=== PATIENT | female | born 1965 | race Caucasian/White ===

== ENCOUNTER → 2017-04-24 | Outpatient (CLI) | payer BC ==
--- NOTE | 2017-04-24 13:05 | US ---
EXAMINATION TYPE: US thyroid st tissue head/neck DATE OF EXAM: 04/24/2017 COMPARISON: CT neck September 11, 2016. Prior neck ultrasound January 15, 2013 CLINICAL HISTORY: E04.1 Thyroid Cyst. GLAND SIZE: Right Lobe: 4.5 x 0.6 x 2.1 cm Overall Parenchyma: heterogenous Left Lobe: 4.5 x 1.3 x 1.5 cm Overall Parenchyma: heterogeneous Isthmus Thickness: 0.1 cm NODULES RIGHT: # of nodules measured on right: 1 1. 0.8 X 0.7 x 0.6 cm isoechoic solid nodule at the lower pole with well-defined margins; interrupt ed peripheral calcification. This nodule is wider than tall and shows intranodular vascularity. no prior ultrasound here LEFT: # of nodules measured on left: 4 1. 0.8 X 0.7 x 0.6 cm hypoechoic solid nodule at the upper pole with well-defined margins. This no dule is taller than wide and shows intranodular vascularity. 2. 1.2 X 1.1 x 1.0 cm isoechoic solid nodule at the mid pole with well-defined margins. This nodule is as wide as it is tall and shows intranodular vascularity. 3. 1.1 X 0.9 x 0.9 cm isoechoic solid nodule at the upper pole with well-defined margins. This nod ule is taller than wide and shows intranodular vascularity. 4. 1.5 X 0.7 x 0.8 cm hypoechoic solid nodule at the lower pole with well-defined margins. This nod ule is wider than tall and shows intranodular vascularity. ISTHMUS: # of nodules measured in the isthmus: 2 1. 1.3 X 0.5 x 0.4 cm isoechoic mixed nodule at the right pole with well-defined margins. This nod ule is wider than tall and shows intranodular vascularity. 2. 0.7 X 0.5 x 0.6 cm isoechoic mixed nodule at the left pole with well-defined margins. This nodul e is wider than tall and shows no intranodular vascularity. Bilateral neck scanned, no evidence of lymphadenopathy. Thyroid gland is normal in size and heterogeneous in appearance with scattered nodules identified boom aterally. A few nodules are greater than 1 cm in size. More nodules in right thyroid lobe are seen on prior CT than identified on ultrasound or are placed in the isthmus. IMPRESSION: The findings are consistent with multinodular goiter as detailed above.
== END | disposition home or self-care (01) ==
LOC: RADUSWWP 12:04
PROVIDERS: ATTEND Family Medicine
DX: E04.2 Nontoxic multinodular goiter (principal)
CPT/HCPCS: 76536

== ENCOUNTER → 2017-08-07 | Outpatient (CLI) | payer BC ==
--- NOTE | 2017-08-07 12:35 | MM ---
Reason for exam: screening (asymptomatic). Last mammogram was performed 1 year and 4 months ago. History: Family history of breast cancer in maternal grandmother. Benign cyst aspiration of the right breast. Took hormonal contraceptives for 9 years 1 month beginning at age 36. Physical Findings: A clinical breast exam by your physician is recommended on an annual basis and results should be correlated with mammographic findings. MG Screening Mammo w CAD Bilateral CC and MLO view(s) were taken. Prior study comparison: April 14, 2016, bilateral MG screening mammo w CAD. January 16, 2015, bilateral MG screening mammo w CAD. The breast tissue is heterogeneously dense. This may lower the sensitivity of mammography. Asymmetric breast tissue in the left breast is stable. There is no discrete abnormality. ASSESSMENT: Negative, BI-RAD 1 RECOMMENDATION: Routine screening mammogram of both breasts in 1 year.
== END | disposition home or self-care (01) ==
LOC: RADMAMWWP 09:26
PROVIDERS: ATTEND Obstetrics & Gynecology
DX: Z12.31 Encounter for screening mammogram for malignant neoplasm of breast (principal)

== ENCOUNTER → 2017-11-29 | Outpatient (CLI) | payer BC ==
--- NOTE | 2017-11-29 17:21 | US ---
EXAMINATION TYPE: US thyroid st tissue head/neck DATE OF EXAM: 11/29/2017 COMPARISON: US 2017. Ultrasound 04/24/2017. CLINICAL HISTORY: E04.1 THYROID NODULE. Follow up thyroid nodules, history of multiple thyroid FNA's, patient on thyroid meds GLAND SIZE: Right Lobe: 4.3 x 1.1 x 1.5 cm Overall Parenchyma: homogenous Left Lobe: 4.6 x 1.4 x 1.5 cm Overall Parenchyma: homogeneous Isthmus Thickness: 0.2 cm NODULES RIGHT: # of nodules measured on right: 3 1. 0.8 X 0.6 x 0.6 cm hypoechoic calcified solid nodule at the lower pole with well-defined margins . This nodule is wider than tall and shows no intranodular vascularity. Prior size: 0.8 x 0.7 x 0.6 cm 2. 1.1 X 0.4 x 0.5 cm hypoechoic solid nodule at the mid pole with well-defined margins. This nodule is wider than tall and shows intranodular vascularity. Prior size: no previous 3. 0.6 X 0.3 x 0.5 cm hypoechoic mixed nodule at the lower pole with well-defined margins. This nodu le is wider than tall and shows no intranodular vascularity. Prior size: no previous LEFT: # of nodules measured on left: 3 1. 1.2 X 1.0 x 1.1 cm hypoechoic solid nodule at the mid pole with well-defined margins. This nodul e is wider than tall and shows intranodular vascularity. Prior size: 1.2 x 1.1 x 1.0 cm 2. 1.3 X 0.8 x 0.8 cm hypoechoic mixed nodule at the upper pole with well-defined margins. This nodu le is wider than tall and shows intranodular vascularity. Prior size: 1.1 x 0.9 x 0.9 cm 3. 1.1 X 0.7 x 0.8 cm hypoechoic mixed nodule at the lower pole with well-defined margins. This nodu le is wider than tall and shows intranodular vascularity. Prior size: 1.5 x 0.7 x 0.8 cm ISTHMUS: # of nodules measured in the isthmus: 3 1. 1.2 X 0.5 x 0.7 cm hypoechoic mixed nodule at the right isthmus with well-defined margins. This nodule is wider than tall and shows intranodular vascularity. Prior size: 1.3 x 0.5 x 0.8 cm 2. 0.7 X 0.3 x 0.6 cm hypoechoic solid nodule at the left isthmus with well-defined margins. This n odule is wider than tall and shows intranodular vascularity. Prior size: 0.7 x 0.5 x 0.6 cm 3. 1.2 X 0.9 x 1.4 cm hypoechoic mixed nodule at the right isthmus with well-defined margins. This nodule is wider than tall and shows intranodular vascularity. Prior size: no previous Bilateral neck scanned, no evidence of lymphadenopathy. IMPRESSION: 1. Subcentimeter an enlarged thyroid nodules present bilaterally including within the isthmus. 2. There is a new nodule measuring 1.2 x 0.9 x 1.4 cm within the right portion of the isthmus not pre sent previously. 3. No enlarging nodules from prior examination.
== END | disposition home or self-care (01) ==
LOC: RADUSWWP 10:22
PROVIDERS: ATTEND Otolaryngology
DX: E04.1 Nontoxic single thyroid nodule (principal)
CPT/HCPCS: 76536

== ENCOUNTER 2018-01-30 12:14 | Day surgery (SDC) | payer BC ==
[2018-01-30 12:27] VITALS: RESP 16; TEMP 97.7
[2018-01-30 13:46] VITALS: BP 134/66; PULSE 60
--- NOTE | 2018-01-30 13:59 | US ---
ULTRASOUND GUIDED FNA THYROID BIOPSY: CLINICAL HISTORY: Request for single bilateral thyroid nodule FNA FINDINGS: The procedure was explained to the patient. The risks, complications, benefits and alternatives were discussed and any questions were answered. Informed consent was obtained. Patient was placed supin e on the ultrasound table and prepped and draped in the usual sterile fashion. Utilizing a 25 gauge needle, five passes were made into the requested thyroid nodules. Patient was stable throughout the procedure. Pathology is pending. All elements of maximal barrier technique were utilized. IMPRESSION: 1. Successful ultrasound guided FNA thyroid biopsy.
== END 2018-01-30 13:53 | disposition home or self-care (01) ==
LOC: RADPROMAIN 12:14
PROVIDERS: ATTEND Otolaryngology
DX: E04.1 Nontoxic single thyroid nodule (principal)
CPT/HCPCS: 10022; 76942; 88173; 88305

== ENCOUNTER → 2019-04-15 | Outpatient (CLI) | payer OTHER ==
--- NOTE | 2019-04-15 14:32 | BD ---
EXAMINATION TYPE: Axial Bone Density DATE OF EXAM: 04/15/2019 COMPARISON: NONE CLINICAL HISTORY: Encounter for osteoporosis. Postmenopausal female. Height: 5 FT 6 1/4 IN Weight: 130 FRAX RISK QUESTIONS: RISK FACTORS HISTORY OF: Active: YES Postmenopausal woman: AGE 52 If Premenopausal, do you have irregular periods: Take estrogen and/or progesterone medications: JUST STARTED PREMPRO How long: ONE WEEK Lost more than 2 inches in height since high school: YES MEDICATIONS: Thyroid Medications: YES Which medication: LEVOTHYROXINE How Long: APPROX 10 YEARS Additional Medications: HRT, LEVOTHYROXINE, ELEVIL, ZOLOFT, Additional History: EXAM MEASUREMENTS: Bone mineral densitometry was performed using the [employer] System. Bone mineral density as measured about the Lumbar spine is: ----- L1-L4(G/cm2): 1.033 T Score Values are as follows: ----- L2: -1.2 ----- L3: -1.2 ----- L4: -1.7 ----- L1-L4: -1.2 BASELINE Bone mineral density about the R hip (g/cm2): 0.782 Bone mineral density about the L hip (g/cm2): 0.791 T Score values are as follows: -----R Neck: -1.8 -----L Neck: -1.8 -----R Total: -2.2 -----L Total: -2.1 BASELINE IMPRESSION: Osteopenia (T Score between -2.5 and -1). There is slightly increased risk of fracture and the patient may be considered for treatment. Re-Screen 2-5 years. NOTE: T-SCORE=SD OF THE YOUNG ADULT MEAN.
--- NOTE | 2019-04-16 13:52 | MM ---
Reason for exam: screening (asymptomatic). Last mammogram was performed 1 year and 8 months ago. History: Patient is postmenopausal. Family history of breast cancer in maternal grandmother. Benign cyst aspiration of the right breast. Took hormonal contraceptives for 9 years 1 month beginning at age 36. Physical Findings: A clinical breast exam by your physician is recommended on an annual basis and results should be correlated with mammographic findings. MG 3D Screening Mammo W/Cad Bilateral CC and MLO view(s) were taken. Prior study comparison: August 07, 2017, bilateral MG screening mammo w CAD. April 14, 2016, bilateral MG screening mammo w CAD. The breast tissue is heterogeneously dense. This may lower the sensitivity of mammography. There is a new obscured 5mm spiculated mass 7.5cm from nipple in the left upper outer quadrant and stable left superior asymmetry 4.7cm from nipple. No suspicious abnormality on the right breast. ASSESSMENT: Incomplete: need additional imaging evaluation, BI-RAD 0 RECOMMENDATION: Ultrasound of the left breast. (attention 7.5cm from the nipple, 1-2 o'clock) [facility] will attempt to contact patient to return for ultrasound.
== END | disposition home or self-care (01) ==
LOC: RADMAMWWP 10:13
PROVIDERS: ATTEND Obstetrics & Gynecology
DX: Z12.31 Encounter for screening mammogram for malignant neoplasm of breast (principal); M85.88 Other specified disorders of bone density and structure, other site
CPT/HCPCS: 77063; 77067; 77080

== ENCOUNTER → 2019-04-15 | Outpatient (CLI) | payer OTHER ==
--- NOTE | 2019-04-15 14:43 | US ---
EXAMINATION TYPE: US thyroid st tissue head/neck DATE OF EXAM: 04/15/2019 COMPARISON: 11/29/2017 CLINICAL HISTORY: GOITER E07.9. GLAND SIZE: Right Lobe: 3.1 x 1.6 x 1.5 cm Overall Parenchyma: heterogenous Left Lobe: 4.5 x 1.5 x 1.7 cm Overall Parenchyma: heterogeneous Isthmus Thickness: 0.3 cm NODULES RIGHT: # of nodules measured on right: 3 1. 0.6 X 0.3 x 0.5 cm hypoechoic mixed nodule at the lower pole with well-defined margins; . This nodule is wider than tall and shows intranodular vascularity. Prior size: 0.6 x 0.3 x 05 cm 2. 0.8 X 0.4 x 0.6 cm hypoechoic solid nodule at the lower pole with well-defined margins; . This n odule is wider than tall and shows . Prior size: 0.8 x 0.7 x 0.6 cm 3. 0.8 X 0.4 x 0.5 cm hypoechoic solid nodule at the mid pole with well-defined margins; . This nod ule is wider than tall and shows intranodular vascularity. Prior size: 1.1x0.4 x 0.5 x cm LEFT: # of nodules measured on left: 2 largest measured, third is subcentimeter 1. 1.3 X 1.0 x 1.4 cm hypoechoic mixed nodule at the upper pole with well-defined margins; . This nodule is wider than tall and shows intranodular vascularity. Prior size: 1.3 x 0.8 x 0.8 cm 2. 1.1 X 1.0 x 1.5 cm hypoechoic solid nodule at the mid pole with well-defined margins; . This nod ule is wider than tall and shows intranodular vascularity. Prior size: 1.2 x 1.0 x 1.1 cm ISTHMUS: # of nodules measured in the isthmus: 3 1. 1.2 X 0.8 x 0.9 cm hypoechoic mixed nodule at the rt isthmus with well-defined margins; . This nodule is wider than tall and shows intranodular vascularity. Prior size: 1.2 x 0.5 x 0.7 cm 2. 1.3 X 1.0 x 1.4 cm hypoechoic solid nodule at the lt isthmus with well-defined margins; . This n odule is wider than tall and shows intranodular vascularity. Prior size: 1.2 x 0.9 x 0.4 cm 3. 1.1 X 1.0 x 1.5 cm hypoechoic solid nodule at the lt isthmus with well-defined margins; . This n odule is wider than tall and shows intranodular vascularity. Prior size: 1.2 x 0.9 x 1.4 cm Bilateral neck scanned, no evidence of lymphadenopathy. IMPRESSION: Multinodular goiter with numerous subcentimeter thyroid nodules and similar size of the greater than 1 cm left thyroid nodules, largest measuring 1.5 cm. Minimal growth is seen of a nodule within the th yroid isthmus however this appears to have been recently biopsied in 2018. No new nodule is identifie d.
== END | disposition home or self-care (01) ==
LOC: RADUSWWP 10:24
PROVIDERS: ATTEND Family Medicine
DX: E04.2 Nontoxic multinodular goiter (principal)
CPT/HCPCS: 76536

== ENCOUNTER → 2019-04-23 | Outpatient (CLI) | payer OTHER ==
--- NOTE | 2019-04-23 11:17 | USB ---
Reason for exam: additional evaluation requested from abnormal screening. History: Patient is postmenopausal. Family history of breast cancer in maternal grandmother. Benign cyst aspiration of the right breast. Took hormonal contraceptives for 9 years 1 month beginning at age 36. Physical Findings: Nurse did not find any significant physical abnormalities on exam. US Breast Workup Limited LT Left limited breast ultrasound including focal area of concern, retroareolar and axilla demonstrates no cystic or solid lesion seen. These results were verbally communicated with the patient and result sheet given to the patient on 04/23/19. ASSESSMENT: Negative, BI-RAD 1 RECOMMENDATION: Return to routine screening mammogram schedule for both breasts.
== END | disposition home or self-care (01) ==
LOC: RADUSWWP 10:17
PROVIDERS: ATTEND Obstetrics & Gynecology
DX: R92.8 Other abnormal and inconclusive findings on diagnostic imaging of breast (principal)

== ENCOUNTER → 2020-07-07 | Outpatient (CLI) | payer MEDICAID ==
--- NOTE | 2020-07-08 07:30 | US ---
EXAMINATION TYPE: US thyroid st tissue head/neck DATE OF EXAM: 07/07/2020 COMPARISON: US 2019 CLINICAL HISTORY: E07.9 thyroid goiter. Thyroid goiter. Hx of nodules. Patient on levothyroxine. Hx o f thyroid biopsy. GLAND SIZE: Right Lobe: 4.3 x 1.6 x 1.2 cm Overall Parenchyma: heterogenous Left Lobe: 4.0 x 1.5 x 1.2 cm Overall Parenchyma: heterogeneous Isthmus Thickness: 0.24 cm NODULES RIGHT: # of nodules measured on right: 3 1. 0.8 X 0.5 x 0.4 cm hypoechoic solid nodule at the mid pole with well-defined margins. This nodu le is wider than tall and shows intranodular vascularity. Prior size: 0.8 x 0.76 x 0.4 cm 2. 1.1 X 0.9 x 0.5 cm mixed complex nodule at the mid pole with well-defined margins. This nodule i s wider than tall and shows intranodular vascularity. Prior size: 0.7 x 0.5 x 0.4 cm 3. 0.8 X 0.6 x 0.6 cm hypoechoic solid nodule at the lower pole with well-defined margins; interrupt ed peripheral calcification. This nodule is as wide as it is tall and shows intranodular vascularity . Prior size: Does not correlate. LEFT: # of nodules measured on left: 4 1. 1.3 X 0.9 x 0.7 cm heterogeneous nodule at the upper pole with well-defined margins; present wit h microcalcifications. This nodule is wider than tall and shows peripheral vascularity. Prior size: 1.3 x 1.4 x 1.0 cm 2. 1.3 X 1.1 x 1.0 cm heterogeneous nodule at the mid pole with well-defined margins; present with m icrocalcifications. This nodule is wider than tall and shows peripheral vascularity. Prior size: 1.1 x 1.5 x 1.0 cm. 3. 0.7 X 0.6 x 0.5 cm complex mixed nodule at the mid pole with well-defined margins; present with m icrocalcifications. This nodule is wider than tall and shows intranodular vascularity. Prior size: Does not correlate. 4. 1.1 X 0.8 x 0.5 cm heterogeneous nodule at the lower pole with poorly defined margins. This nodu le is wider than tall and shows intranodular vascularity. Prior size: Does not correlate. ISTHMUS: # of nodules measured in the isthmus: 3 1. 1.5 X 1.4 x 1.1 cm heterogeneous solid nodule at the upper pole with well-defined margins . Thi s nodule is wider than tall and shows intranodular vascularity. Nodule is slightly right. Prior size: 1.2 x 0.9 x 0.8 cm 2. 1.0 X 0.8 x 0.5 cm hypoechoic solid nodule at the lower pole with well-defined margins. This nod ule is wider than tall and shows intranodular vascularity. Nodule is slightly right. Prior size: Does not correlate 3. 1.1 X 0.7 x 0.5 cm hypoechoic solid nodule at the lower pole with well-defined margins. This nod ule is wider than tall and shows intranodular vascularity. Nodule is slightly left. Prior size: Does not correlate. Bilateral neck scanned, no evidence of lymphadenopathy. IMPRESSION: Essentially stable nonspecific thyroid nodularity and heterogeneity.
== END | disposition home or self-care (01) ==
LOC: RADUSWWP 16:42
PROVIDERS: ATTEND Family Medicine
DX: E04.1 Nontoxic single thyroid nodule (principal)
CPT/HCPCS: 76536

== ENCOUNTER → 2020-07-30 | Outpatient (CLI) | payer MEDICAID ==
--- NOTE | 2020-07-31 13:55 | MM ---
Reason for exam: screening (asymptomatic). Last mammogram was performed 1 year and 3 months ago. History: Patient is postmenopausal. Family history of breast cancer in maternal grandmother. Benign cyst aspiration of the right breast. Took hormonal contraceptives for 9 years 1 month beginning at age 36. Taking estrogen for 7 months. Physical Findings: A clinical breast exam by your physician is recommended on an annual basis and results should be correlated with mammographic findings. MG Screening Mammo w CAD Bilateral CC and MLO view(s) were taken. Prior study comparison: April 15, 2019, bilateral MG 3d screening mammo w/cad. August 07, 2017, bilateral MG screening mammo w CAD. The breast tissue is extremely dense which could obscure a lesion on mammography. No significant changes when compared with prior studies. ASSESSMENT: Benign, BI-RAD 2 RECOMMENDATION: Routine screening mammogram of both breasts in 1 year.
== END | disposition home or self-care (01) ==
LOC: RADMAMWWP 15:58
PROVIDERS: ATTEND Obstetrics & Gynecology
DX: Z12.31 Encounter for screening mammogram for malignant neoplasm of breast (principal)
CPT/HCPCS: 77067

== ENCOUNTER → 2021-08-11 | Outpatient (CLI) | payer MEDICAID ==
--- NOTE | 2021-08-12 14:10 | BD ---
EXAMINATION TYPE: Axial Bone Density DATE OF EXAM: 08/11/2021 COMPARISON: NONE CLINICAL HISTORY: Height: 5 FT 8 IN Weight: 130 FRAX RISK QUESTIONS: Alcohol (3 or more units per day): NO Family History (Parent hip fracture): NO Glucocorticoids (More than 3mos): NO (Ex: prednisone, prednisolone, methylprednisolone, dexamethasone, and hydrocortisone). History of Fracture in Adulthood: NO Secondary Osteoporosis: 1. Type 1 Diabetes: NO 2. Hyperthyroidism: NO 3. Menopause before 45: NO 4. Malnutrition: NO 5. Chronic liver disease: NO Rheumatoid Arthritis: NO Current Tobacco Use: NO RISK FACTORS HISTORY OF: Surgery to Spine/Hip(right/left)/Wrist (right/left): NO Family History of Osteoporosis: NO Active: YES Diet low in dairy products/other sources of calcium: NO Postmenopausal woman: AGE 52 Take estrogen and/or progesterone medications: YES How lon YEARS Lost more than 2 inches in height since high school: NO MEDICATIONS: Thyroid Medications: YES Which medication: LEVOTHYROXINE How Lon YEARS Additional Medications: ESTRADIAL , PROGESTERONE ,LEVOTHYROXINE, MIGRAINE MEDS, OLI TRY PTI LINE, Additional History: EXAM MEASUREMENTS: Bone mineral densitometry was performed using the [email or web address] System. Bone mineral density as measured about the Lumbar spine is: ----- L1-L4(G/cm2): 0.993 T Score Values are as follows: ----- L2: -1.4 ----- L3: -1.6 ----- L4: -2.1 ----- L1-L4: -1.6 Bone mineral density has: DECREASED -4.0 % since study of: 2018 Bone mineral density about the R hip (g/cm2): 0.735 Bone mineral density about the L hip (g/cm2): 0.767 T Score values are as follows: -----R Neck: -2.2 -----L Neck: -1.9 -----R Total: -2.4 -----L Total: -2.3 Bone mineral density has: DECREASED -3.8 % since study of: 2018 IMPRESSION: Osteopenia (T Score between -2.5 and -1). There is slightly increased risk of fracture and the patient may be considered for treatment. Re-Screen 2-5 years. NOTE: T-SCORE=SD OF THE YOUNG ADULT MEAN.
--- NOTE | 2021-08-13 11:16 | MM ---
Reason for exam: screening (asymptomatic). Last mammogram was performed 1 year ago. History: Patient is postmenopausal. Family history of breast cancer in maternal grandmother. Benign cyst aspiration of the right breast. Took hormonal contraceptives for 9 years 1 month beginning at age 36. Taking estrogen for 7 months. Physical Findings: A clinical breast exam by your physician is recommended on an annual basis and results should be correlated with mammographic findings. MG 3D Screening Mammo W/Cad Bilateral CC and MLO view(s) were taken. Prior study comparison: July 30, 2020, bilateral MG screening mammo w CAD. April 23, 2019, left breast US breast workup limited LT. April 15, 2019, bilateral MG 3d screening mammo w/cad. August 07, 2017, bilateral MG screening mammo w CAD. The breast tissue is heterogeneously dense. This may lower the sensitivity of mammography. No significant changes when compared with prior studies. ASSESSMENT: Benign, BI-RAD 2 RECOMMENDATION: Routine screening mammogram of both breasts in 1 year. Patient should continue monthly self breast exams. A negative report should not preclude additional follow up of suspicious palpable abnormalities.
== END | disposition home or self-care (01) ==
LOC: RADBDWWP 14:15
PROVIDERS: ATTEND Obstetrics & Gynecology
DX: Z12.31 Encounter for screening mammogram for malignant neoplasm of breast (principal); M85.89 Other specified disorders of bone density and structure, multiple sites; Z78.0 Asymptomatic menopausal state; Z80.3 Family history of malignant neoplasm of breast
CPT/HCPCS: 77063; 77067; 77080

== ENCOUNTER → 2022-02-14 | Outpatient (CLI) | payer MEDICAID ==
[2022-02-14 18:26] LABS: Basophils # (A) 0.04 X 10*3/uL (0.00-0.10); Basophils % (A) 0.7 %; Eosinophils # (A) 0.23 X 10*3/uL (0.04-0.35); Eosinophils % (A) 3.8 %; HCT 44.6 % (37.2-46.3); HGB 14.5 g/dL (12.0-15.0); Immature Grans, Automated 0.2 %; Lymphocytes # (A) 1.54 X 10*3/uL (0.90-5.00); Lymphocytes % (A) 25.5 %; MCH 29.7 pg (27.0-32.0); MCHC 32.5 g/dL (32.0-37.0); MCV 91.4 fL (80.0-97.0); Mean Platelet Volume 10.8 fL (9.5-12.2); Monocytes # (A) 0.28 X 10*3/uL (0.20-1.00); Monocytes % (A) 4.6 %; NRBC Per 100 WBC 0 /100 WBCS (0.0-0.0); Neutrophils # (A) 3.94 X 10*3/uL (1.80-7.70); Neutrophils % (A) 65.2 %; Platelet Count 249 X 10*3/uL (140-440); RBC 4.88 X 10*6/uL (4.10-5.20); RDW 11.7 % (11.5-14.5); WBC 6.04 X 10*3/uL (4.50-10.00)
[2022-02-14 18:49] LABS: ALT 22 U/L (8-44); AST 24 U/L (13-35); African American GFR (CKD) 91.5 (60.0-200.0); Albumin 4.9 g/dL (3.8-4.9); Albumin/Globulin Ratio 2.24 (1.60-3.17); Alkaline Phosphatase 75 U/L (41-126); BUN/Creat Ratio 19.66 Ratio (12.00-20.00); Blood Urea Nitrogen 16.3 mg/dL (9.0-27.0); Calcium 9.6 mg/dL (8.7-10.3); Carbon Dioxide 26.7 mmol/L (20.0-27.5); Chloride 104 mmol/L (96-109); Chol/HDL Ratio 2.87 Ratio; Globulin 2.2 g/dL (1.6-3.3); Glucose 97 mg/dL (70-110); LDL Cholesterol,Calculated 118.3 mg/dL (0.0-131.0); Non-African American GFR(CKD) 78.9 (60.0-200.0); Potassium 4.1 mmol/L (3.5-5.5); Sodium 143 mmol/L (135-145); Total Protein 7.1 g/dL (6.2-8.2); VLDL Calculation 19.78 mg/dL (5.00-40.00)
== END | disposition home or self-care (01) ==
LOC: LABWHC1 11:38
PROVIDERS: ATTEND Family Medicine
DX: F43.0 Acute stress reaction (principal); E04.1 Nontoxic single thyroid nodule
CPT/HCPCS: 36415; 80053; 80061; 84439; 84443; 85025

== ENCOUNTER → 2022-02-28 | Outpatient (CLI) | payer MEDICAID ==
--- NOTE | 2022-02-28 22:10 | US ---
EXAMINATION TYPE: US thyroid st tissue head/neck DATE OF EXAM: 02/28/2022 COMPARISON: US July 07, 2020 CLINICAL HISTORY: E07.9 THYROID GOITER. Followup multiple nodules. GLAND SIZE: Right Lobe: 3.8 x 1.3 x 1.2 cm Overall Parenchyma: heterogenous Left Lobe: 4.8 x 1.6 x 1.3 cm Overall Parenchyma: heterogeneous Isthmus Thickness: 0.2 cm NODULES RIGHT: # of nodules measured on right: 2 largest of multiple 1. 0.8 X 0.9 x 0.4 cm, mid mid, spongiform, hypoechoic nodule, which is wider than tall, with ill-d efined margins, without echogenic foci. Prior size: 0.8 x 0.5 x 0.4 cm 2. 0.8 X 0.6 x 0.5 cm, lower medial, solid, hypoechoic nodule, which is wider than tall, with irreg ular margins, with echogenic peripheral focus. Prior size: 0.8 x 0.6 x 0.6 cm LEFT: # of nodules measured on left: 3 LARGEST OF MULTIPLE 1. 1.3 X 0.8 x 0.6 cm, upper mid, mixed cystic and solid, hypoechoic nodule, which is wider than ta ll, with ill-defined margins, without echogenic foci. Prior size: 1.3 x 1.1 x 1.0 cm 2. 1.4 X 1.3 X 1.1 cm, mid pole, mixed cystic and solid, hypoechoic nodule, which is wider than ta ll, with irregular margins, with echogenic foci. Prior size: 1.3 x 1.1 x 1.0 cm 3. 1.0 X 0.8 x 0.5 cm, lower pole, mixed cystic and solid, hypoechoic nodule, which is wider than t all, with ill-defined margins, with echogenic foci. Prior size: 1.1 x 0.8 x 0.5 cm ISTHMUS: # of nodules measured in the isthmus: 2 1.Right isthmus: 2.7 x 1.7 x 1.0 cm solid , hypoechoic nodule, which is wider than tall, with lobula julia margins, without echogenic foci. Prior size: 1.5 x 1.4 x 1.1 cm 2. Left isthmus consolidation: 1.3 X 0.8 x 0.5 cm, upper isthmus, mixed cystic and solid, hypoecho ic nodule, which is wider than tall, with lobulated or irregular margins, without echogenic foci. Prior size: 1.1 x 0.7 x 0.5 cm Bilateral neck scanned: no evidence of lymphadenopathy. Heterogeneous somewhat small size thyroid with multiple small nodules redemonstrated. IMPRESSION: As above. No suspicious new or enlarging solid nodules noted. Right thyroid isthmus nodul e likely was larger in size on long axis on prior exam. Sampling of larger nodules noted in the past.
== END | disposition home or self-care (01) ==
LOC: RADUSWWP 16:51
PROVIDERS: ATTEND Family Medicine
DX: E04.2 Nontoxic multinodular goiter (principal)
CPT/HCPCS: 76536

== ENCOUNTER 2022-10-17 13:01 | Day surgery (SDC) | payer BC, MEDICAID ==
[~2022-10-17 13:01] MED LIST: LACTATED RINGERS 1,000 ML IV SCH
[2022-10-17 13:18] VITALS: TEMP 96.9
[2022-10-17] MEDS ORDERED: LIDOCAINE 2% INJ 20 MG/ML (2 ML VIAL) ONE (14:00)
[2022-10-17] MEDS ORDERED: PROPOFOL 10 MG/ML 20 ML VIAL IV ONE (14:00)
--- NOTE | 2022-10-17 14:06 | P.GSHP ---
History of Present Illness H&P Date: 10/17/22 Chief Complaint: Screening colonoscopy This is a 57-year-old female who presents today for screening colonoscopy. Patient denies a significant GI complaints. Past Medical History Past Medical History: Thyroid Disorder Additional Past Medical History / Comment(s): migraines History of Any Multi-Drug Resistant Organisms: None Reported Past Surgical History: Orthopedic Surgery Additional Past Surgical History / Comment(s): knee surgery with screws, mult thyroid biopsy Past Anesthesia/Blood Transfusion Reactions: No Reported Reaction Smoking Status: Never smoker - Past Family History Father Family Medical History: Cancer Additional Family Medical History / Comment(s): bladder cancer Medications and Allergies Home Medications Medication Instructions Recorded Confirmed Type Amitriptyline HCl 10 mg PO HS 07/14/16 10/17/22 History Levothyroxine Sodium [Levoxyl] 25 mcg PO QAM 07/14/16 10/17/22 History Sertraline [Zoloft] 75 mg PO QAM 07/14/16 10/17/22 History Prednisolone Acetate/Pf 1 drop RIGHT EYE QID 10/12/22 10/17/22 History [Prednisolone Acet 1% Eye Drop] Ubrogepant [Ubrelvy] 100 mg PO DAILY PRN 10/12/22 10/17/22 History estradioL 0.5 mg PO DAILY 10/12/22 10/17/22 History medroxyPROGESTERone [Provera] 2.5 mg PO DAILY 10/12/22 10/17/22 History Allergies Allergy/AdvReac Type Severity Reaction Status Date / Time No Known Allergies Allergy Verified 10/17/22 13:14 Surgical - Exam Vital Signs Temp Pulse Resp BP Pulse Ox 96.9 F L 75 17 154/78 100 10/17/22 13:17 10/17/22 13:17 10/17/22 13:17 10/17/22 13:17 10/17/22 13:17 - General well developed, well nourished, no distress - Eyes PERRL - ENT normal pinna - Neck no masses - Respiratory normal expansion - Cardiovascular Rhythm: regular - Abdomen Abdomen: soft, non tender Assessment and Plan Assessment: We'll perform screening colonoscopy
--- NOTE | 2022-10-17 14:18 | P.OP ---
Date of Procedure: 10/17/22 Preoperative Diagnosis: Screening colonoscopy Postoperative Diagnosis: Diverticulosis Procedure(s) Performed: Screening colonoscopy Anesthesia: MAC Surgeon: Daniel Sainz Pathology: none sent Condition: stable Disposition: PACU Description of Procedure: Patient's placed on the endoscopy table in the lateral position. She received IV sedation. Digital rectal exam was performed. This revealed no ebonized. Flexible colonoscope was then placed the patient's anus and passed throughout the entire colon. The ileocecal valve was visualized. The cecum, ascending and transverse colon appeared normal. In the descending; there is moderate diverticular changes. The scope was then brought back the rectum and this appeared normal. Scope withdrawn for patient.
[2022-10-17 14:27] VITALS: RESP 16
[2022-10-17 17:29] VITALS: BP 129/80; PULSE 59
== END 2022-10-17 15:00 | disposition home or self-care (01) ==
LOC: ORWHC2ENDO 13:01
PROVIDERS: ATTEND Surgery
DX: Z12.11 Encounter for screening for malignant neoplasm of colon (principal); K57.30 Diverticulosis of large intestine without perforation or abscess without bleeding; E07.9 Disorder of thyroid, unspecified; G43.909 Migraine, unspecified, not intractable, without status migrainosus; Z98.890 Other specified postprocedural states; Z80.52 Family history of malignant neoplasm of bladder; Z79.890 Hormone replacement therapy; Z79.899 Other long term (current) drug therapy
CPT/HCPCS: 45378; J2704; J2001

== ENCOUNTER → 2023-02-08 | Outpatient (CLI) | payer BC ==
--- NOTE | 2023-02-09 08:47 | MM ---
Reason for Exam: Screening (asymptomatic). Last mammogram was performed 1 year(s) and 6 month(s) ago. Patient History: Menarche at age 15. First Full-Term at age 29. Postmenopausal. Ashkenazi Holiness. Currently using Estrogen, for 7 months. Hormonal Contraceptives for 9 years, 1 month, from age 36 until age 47. Benign Cyst Aspiration on the right side. Maternal grandmother had breast cancer, age 68. Risk Values: Luba 5 year model risk: 1.3%. NCI Lifetime model risk: 8.0%. Prior Study Comparison: 04/15/2019 Bilateral Screening Mammogram, [facility]. 07/30/2020 Bilateral Screening Mammogram, [facility]. 08/11/2021 Bilateral Screening Mammogram, [facility]. Tissue Density: The breast tissue is heterogeneously dense. This may lower the sensitivity of mammography. Findings: Analyzed By CAD. Nodule right 3:00 position approximately 6.6 cm from the nipple and measuring 6.8 mm in size. Ultrasound is recommended. No additional nodules seen. No suspicious consultations present. Overall Assessment: Incomplete: need additional imaging evaluation, BI-RAD 0 Management: Diagnostic Breast Ultrasound of the right breast. A clinical breast exam by your physician is recommended on an annual basis and results should be correlated with mammographic findings. Electronically signed and approved by: Gregorio Linder M.D. Radiologis
== END | disposition home or self-care (01) ==
LOC: RADMAMWWP 14:34
PROVIDERS: ATTEND Obstetrics & Gynecology
DX: Z12.31 Encounter for screening mammogram for malignant neoplasm of breast (principal); Z78.0 Asymptomatic menopausal state; Z80.3 Family history of malignant neoplasm of breast
CPT/HCPCS: 77063; 77067

== ENCOUNTER → 2023-02-10 | Outpatient (CLI) | payer BC ==
--- NOTE | 2023-02-10 13:20 | USB ---
Reason for Exam: Additional evaluation requested from abnormal screening. Patient History: Menarche at age 15. First Full-Term at age 29. Postmenopausal. Ashkenazi Rastafari. Currently using Estrogen, for 7 months. Hormonal Contraceptives for 9 years, 1 month, from age 36 until age 47. Benign Cyst Aspiration on the right side. Maternal grandmother had breast cancer, age 68. Risk Values: Luba 5 year model risk: 1.3%. NCI Lifetime model risk: 8.0%. Technique: Method: Targeted. Prior Study Comparison: 04/23/2019 Left Diagnostic Ultrasound, [facility]. 07/30/2020 Bilateral Screening Mammogram, [facility]. 08/11/2021 Bilateral Screening Mammogram, [facility]. 02/08/2023 Bilateral MG 3D screening mammo w/cad, [facility]. Findings: The medial section of the breast of the right breast, the axilla of the right breast and the retroareolar of the right breast were scanned. Targeted ultrasound of the right breast from 2-4 o'clock was obtained with additional evaluation of the nipple and axillary tail. There is a well-circumscribed thin-walled anechoic lesion without definitive posterior acoustic enhancement in the right breast at 3:00 7 cm from the nipple measuring 0.9 x 0.4 x 0.8 cm. This corresponds to mammographic finding. No internal color flow identified and is parallel in orientation. This likely represents a cyst however there is minimal to no posterior acoustic enhancement identified. No suspicious adenopathy is identified. Overall Assessment: Probably benign, BI-RAD 3 Management: Diagnostic Breast Ultrasound of the right breast in 6 months. A clinical breast exam by your physician is recommended on an annual basis and results should be correlated with mammographic findings. This exam should not preclude additional follow-up of suspicious palpable abnormalities. Results were given to the patient verbally at the time of exam. Electronically signed and approved by: Jason Daniel D.O.
== END | disposition home or self-care (01) ==
LOC: RADUSWWP 12:51
PROVIDERS: ATTEND Obstetrics & Gynecology
DX: R92.8 Other abnormal and inconclusive findings on diagnostic imaging of breast (principal); Z78.0 Asymptomatic menopausal state; Z80.3 Family history of malignant neoplasm of breast

== ENCOUNTER → 2023-10-03 | Outpatient (CLI) | payer BC ==
--- NOTE | 2023-10-03 13:47 | USB ---
Reason for Exam: Follow-up at short interval from prior study. Patient History: Menarche at age 15. First Full-Term at age 29. Postmenopausal. Ashkenazi Jew. Currently using Estrogen, for 7 months. Hormonal Contraceptives for 9 years, 1 month, from age 36 until age 47. Benign Cyst Aspiration on the right side. Maternal grandmother had breast cancer, age 68. Risk Values: Luba 5 year model risk: 1.4%. NCI Lifetime model risk: 7.8%. Technique: Method: Targeted. Prior Study Comparison: 07/30/2020 Bilateral Screening Mammogram, [facility]. 08/11/2021 Bilateral Screening Mammogram, [facility]. 02/08/2023 Bilateral MG 3D screening mammo w/cad, [facility]. Findings: The medial section of the breast of the right breast, the axilla of the right breast and the retroareolar of the right breast were scanned. There is a 1.0 x 0.5 x 0.8 cm hypoechoic area 3:00 position 7 cm from the nipple. This correlates with the prior exam although is mildly larger than the comparison study of 02/10/2023. This may has some septation along the inferior border. Posterior acoustic enhancement is not identified. This cannot be classified as a simple cyst. This may be a complex cyst. Recommend cyst aspiration for additional workup.. Overall Assessment: Suspicious, BI-RAD 4 Management: Aspiration of the right breast. A clinical breast exam by your physician is recommended on an annual basis and results should be correlated with mammographic findings. This exam should not preclude additional follow-up of suspicious palpable abnormalities. Results were given to the patient verbally at the time of exam. Electronically signed and approved by: [place] Hein D.O. Radiologis
== END | disposition home or self-care (01) ==
LOC: RADUSWWP 10:56
PROVIDERS: ATTEND Obstetrics & Gynecology
DX: R92.8 Other abnormal and inconclusive findings on diagnostic imaging of breast (principal); Z78.0 Asymptomatic menopausal state; Z80.3 Family history of malignant neoplasm of breast

== ENCOUNTER → 2023-10-18 | Day surgery (SDC) | payer BC ==
--- NOTE | 2023-10-24 09:07 | MM ---
Reason for Exam: Post Procedure Mammogram. Last screening mammogram was performed 8 month(s) ago. Patient History: Menarche at age 15. First Full-Term at age 29. Postmenopausal. Ashkenazi Judaism. Currently using Estrogen, for 7 months. Hormonal Contraceptives for 9 years, 1 month, from age 36 until age 47. Benign Cyst Aspiration on the right side. Maternal grandmother had breast cancer, age 68. Risk Values: Luba 5 year model risk: 1.4%. NCI Lifetime model risk: 7.8%. Prior Study Comparison: 07/30/2020 Bilateral Screening Mammogram, [facility]. 08/11/2021 Bilateral Screening Mammogram, [facility]. 02/08/2023 Bilateral MG 3D screening mammo w/cad, [facility]. Tissue Density: Right: The breast tissue is heterogeneously dense. This may lower the sensitivity of mammography. Pathology Description: Location: 3 o'clock. Coil clip The ultrasound guided cyst aspiration procedure was explained to the patient. The risks, benefits, alternatives were discussed. An informed consent was then obtained. A time out was performed. The patient was placed in supine positioning for imaging and for the procedure. The overlying skin was prepped with betadine and sterilely draped in usual sterile fashion. 1% lidocaine was used as anesthetic into the skin and deeper breast tissue up to area of concern in the right 3 o'clock breast, 7 cm from nipple. Under ultrasound guidance, an 18-gauge spinal needle was advanced into the cyst. There was immediate collapse of the cyst without aspiration. Aspiration was attempted with little fluid return. What may be the aspirate was transferred to pathology for additional evaluation. The fluid was labeled and sent for laboratory analysis. A clip was left in lesion. Good hemostasis was obtained with direct pressure. Postprocedure mammogram: The patient was transferred to mammography for physician ordered post procedure mammogram for clip placement verification. The clip is in the expected region of the biopsy. The patient tolerated the procedure well without any immediate complication. The patient was discharged to home in stable condition. Impression: Decompression of the cyst upon puncture with the needle. Little aspirate obtained, Cytology pending. Pathology Results: Result: Benign, Apocrine metaplasia. RIGHT BREAST, THREE O'CLOCK, ASPIRATION: Peripheral blood with rare foamy macrophages. Current specimen negative for cytologic malignancy. Rare cells having favored apocrine metaplasia present. Overall Assessment: Benign Assessment: MG diagnostic mammo RT wo CAD - Right: Benign, BI-RAD 2. Management: Diagnostic Mammogram of the right breast in 6 months. Electronically signed and approved by: [place] Hein D.O. Radiologis
== END ==
LOC: RADUSWWP 10:20
PROVIDERS: ATTEND Surgery
DX: N60.81 Other benign mammary dysplasias of right breast (principal); Z78.0 Asymptomatic menopausal state; Z80.3 Family history of malignant neoplasm of breast
CPT/HCPCS: 88305; 88173; 77065; 76942; 19000; A4648

== ENCOUNTER → 2024-03-27 | Outpatient (CLI) | payer BC ==
--- NOTE | 2024-03-27 11:10 | MM ---
Reason for Exam: Follow-up at short interval from prior study. Last mammogram was performed 1 year(s) and 1 month(s) ago. Patient History: Menarche at age 15. First Full-Term at age 29. Postmenopausal. Ashkenazi Pentecostalism. Currently using Estrogen, for 7 months. Hormonal Contraceptives for 9 years, 1 month, from age 36 until age 47. 10/18/2023, Benign US breast aspiration single RT on the right side. Benign Cyst Aspiration on the right side. Maternal grandmother had breast cancer, age 68. Risk Values: Luba 5 year model risk: 1.4%. NCI Lifetime model risk: 7.6%. Prior Study Comparison: 07/30/2020 Bilateral Screening Mammogram, [facility]. 08/11/2021 Bilateral Screening Mammogram, [facility]. 02/08/2023 Bilateral MG 3D screening mammo w/cad, [facility]. 02/10/2023 Right US breast workup limited RT, [facility]. 10/03/2023 Right US breast limited RT, [facility]. 10/18/2023 Right MG diagnostic mammo RT wo CAD, [facility]. Tissue Density: The breasts are extremely dense, which lowers the sensitivity of mammography. Findings: Analyzed By CAD. The pattern is symmetrical. Small focal asymmetry contains a core marker on the current exam. No suspicious groups of microcalcifications, spiculated or lobular masses, architectural distortion or other secondary signs of malignancy are mammographically apparent. Overall Assessment: Benign, BI-RAD 2 Management: Screening Mammogram of both breasts in 1 year. A negative mammogram report should not preclude additional follow up of suspicious palpable abnormalities. Patient should continue monthly self breast exam. A clinical breast exam by your physician is recommended on an annual basis and results should be correlated with mammographic findings. Note on Luba scores and lifetime risk: 1. A Luba score greater than 3% is considered moderate risk. If this is the case, consider specialist referral to assess eligibility for a risk reducing agent. 2. If overall lifetime risk for the development of breast cancer is 20% or higher, the patient may qualify for future screening with alternating mammogram and breast MRI. Electronically signed and approved by: [place] Hein D.O. Radiologis
== END | disposition home or self-care (01) ==
LOC: RADMAMWWP 10:50
PROVIDERS: ATTEND Surgery
DX: R92.343 Mammographic extreme density, bilateral breasts (principal); Z78.0 Asymptomatic menopausal state; Z80.3 Family history of malignant neoplasm of breast
CPT/HCPCS: 77062; 77066

== ENCOUNTER → 2024-04-04 | Outpatient (CLI) | payer BC ==
--- NOTE | 2024-04-04 18:52 | US ---
EXAMINATION TYPE: US thyroid st tissue head/neck DATE OF EXAM: 04/04/2024 COMPARISON: 02/28/2022 CLINICAL INDICATION: Female, 59 years old with history of E079 THYROID GOITER; Thyroid goiter. Patien t takes levothyroxine. Hx multiple FNAs. GLAND SIZE: Right Lobe: 4.6 x 1.1 x 0.9 cm Overall Parenchyma: heterogeneous Left Lobe: 5.1 x 1.5 x 1.3 cm Overall Parenchyma: heterogeneous Isthmus Thickness: 0.17 cm NODULES RIGHT: # of nodules measured on right: 2 1. 0.7 X 0.5 x 0.4 cm, mid mid, solid or almost completely solid, hypoechoic nodule, which is wider than tall, with smooth margins, without echogenic foci. Prior size: Cannot correlate with certainty 2. 0.9 X 0.6 x 0.4 cm, mid medial, solid or almost completely solid, hypoechoic nodule, which is wi sheridan than tall, with smooth margins, with echogenic foci. Prior size: Cannot correlate with certainty LEFT: # of nodules measured on left: 3 1. 1.2 X 0.8 x 0.8 cm, upper mid, solid or almost completely solid, hypoechoic nodule, which is as wide as it is tall, with smooth margins, with echogenic foci. TR 5. Prior size: 1.3 x 0.8 x 0.6 cm 2. 1.2 X 1.1 x 1.1 cm, mid mid, solid or almost completely solid, hypoechoic nodule, which is as w patrice as it is tall, with smooth margins, with echogenic foci. Highly suspicious nodule, fine-needle as piration recommended. TR 5 Prior size: 1.4 x 1.3 x 1.1 cm 3. 0.8 X 0.7 x 0.7 cm, lower mid, solid or almost completely solid, hypoechoic nodule, which is as wide as it is tall, with smooth margins, with echogenic foci. Prior size: 1.0 x 0.8 x 0.6 cm ISTHMUS: # of nodules measured in the isthmus: 3 1. Isthmus Right- 1.7 X 1.9 x 1.1 cm solid or almost completely solid, hypoechoic nodule, which is w ider than tall, with smooth margins, without echogenic foci. TR4 Prior size: 2.7 x 1.7 x 1.0 cm 2. 0.8 X 0.6 x 0.6 cm solid or almost completely solid, calcified nodule, which is as wide as it is tall, with smooth margins. Prior size: 0.8 x 0.6 x 0.5 cm 3. Isthmus Left- 1.0 X 0.9 x 0.4 cm solid or almost completely solid, hypoechoic nodule, which is wi sheridan than tall, with smooth margins, without echogenic Prior size: Cannot correlate Bilateral neck scanned, no evidence of lymphadenopathy. IMPRESSION: Moderately suspicious and highly suspicious nodules discussed above. Fine-needle aspiration recommend ed 2017 ACR TI-RADS LEVEL: TI-RADS 5 - Highly Suspicious: Follow if > 0.5 cm, FNA if > 1.0 cm *Highest TI-RADS level nodule reported
== END | disposition home or self-care (01) ==
LOC: RADUSWWP 15:03
PROVIDERS: ATTEND Family Medicine
DX: E04.9 Nontoxic goiter, unspecified (principal)
CPT/HCPCS: 76536

== ENCOUNTER → 2024-04-29 | Outpatient (CLI) | payer BC ==
--- NOTE | 2024-04-29 13:31 | XR ---
EXAMINATION TYPE: XR cervical spine limited DATE OF EXAM: 04/29/2024 CLINICAL HISTORY: pain TECHNIQUE: 3 views of the cervical spine are submitted. COMPARISON: None. FINDINGS: There is satisfactory in alignment without evidence of acute fracture or dislocation. The pre-vertebral soft tissue appears within normal limits. Moderate to severe multilevel degenerative d isc space narrowing extending from C4 through C7. The C1-C2 articulation is unremarkable on the open mouth view. IMPRESSION: No acute fracture or dislocation is seen in the cervical spine.
--- NOTE | 2024-04-30 13:47 | BD ---
EXAMINATION TYPE: Axial Bone Density DATE OF EXAM: 04/29/2024 CLINICAL HISTORY: 59 years old Female. ICD-10 CODE: M85.88 DISORDER OF BONE DENSITY Height: 67 Weight: 122.6 FRAX RISK QUESTIONS: Alcohol (3 or more units per day): no Family History (Parent hip fracture): no Glucocorticoids (More than 3mos): no (Ex: prednisone, prednisolone, methylprednisolone, dexamethasone, and hydrocortisone). History of Fracture in Adulthood: Secondary Osteoporosis: 1. Type 1 Diabetes: no 2. Hyperthyroidism: yes 3. Menopause before 45: no 4. Malnutrition: no 5. Chronic liver disease: no Rheumatoid Arthritis: no Current Tobacco Use: no RISK FACTORS HISTORY OF: Hip Fracture (Right/Left): no Spine Fracture: no History of Wrist Fracture: Lt Wrist Surgery to Spine/Hip(right/left)/Wrist (right/left): no MEDICATIONS: Thyroid Medications: Yes How Long: past 25 years Osteoporosis Medications: no EXAM MEASUREMENTS: Bone mineral densitometry was performed using the [employer] System. Bone mineral density as measured about the Lumbar spine is: ----- L1-L4(G/cm2): 0.960 T Score Values are as follows: ----- L1: -1.4 ----- L2: -1.6 ----- L3: -1.9 ----- L4: -2.4 ----- L1-L4: -1.8 Z Score Values are as follows: ----- L1: 0.0 ----- L2: -0.2 ----- L3: -0.4 ----- L4: -1.0 ----- L1-L4: -0.4 Bone mineral density has: decreased -3.3 % since study of: 08/11/2021 Bone mineral density about the R hip (g/cm2): 0.684 Bone mineral density about the L hip (g/cm2): 0.709 T Score values are as follows: -----R Neck: -2.2 -----L Neck: -2.0 -----R Total: -2.6 -----L Total: -2.4 Z Score values are as follows: -----R Neck: -0.8 -----L Neck: -0.6 -----R Total: -1.5 -----L Total: -1.3 Bone mineral density has: decreased -1.3 % since study of: 08/11/2021 FRAX%s: The graph provided illustrates a 8.8% chance for a major osteoporotic fx and a 1.5% chance fo r the hips probability for fx in 10 years time. IMPRESSION: Osteoporosis (T Score less than -2.5). There is increased fracture risk and therapy is usually indicated based on age. Re-Screen 1-2 years. NOTE: T-SCORE=SD OF THE YOUNG ADULT MEAN.
== END | disposition home or self-care (01) ==
LOC: RADBDWWP 12:44
PROVIDERS: ATTEND Family Medicine
DX: M85.88 Other specified disorders of bone density and structure, other site (principal); M54.2 Cervicalgia
CPT/HCPCS: 72040; 77080

== ENCOUNTER 2024-05-27 08:55 | Day surgery (SDC) | payer BC ==
[2024-05-27 09:58] VITALS: BP 102/68; PULSE 56; RESP 16; TEMP 97.9
== END 2024-05-27 09:50 | disposition home or self-care (01) ==
LOC: RADPROMAIN 08:55
PROVIDERS: ATTEND Surgery
DX: Z53.8 Procedure and treatment not carried out for other reasons (principal); E04.2 Nontoxic multinodular goiter

== ENCOUNTER → 2024-07-16 | Outpatient (CLI) | payer BC ==
[2024-07-16 15:07] LABS: Basophils # (A) 0.02 X 10*3/uL (0.00-0.10); Basophils % (A) 0.5 %; Eosinophils # (A) 0.02 X 10*3/uL (0.04-0.35); Eosinophils % (A) 0.5 %; HCT 42.8 % (37.2-46.3); Immature Grans, Automated 0 %; Lymphocytes # (A) 1.49 X 10*3/uL (0.90-5.00); Lymphocytes % (A) 36.9 %; MCH 29.6 pg (27.0-32.0); MCHC 32.7 g/dL (32.0-37.0); MCV 90.5 FL (80.0-97.0); Mean Platelet Volume 10.8 FL (9.5-12.2); NRBC Per 100 WBC 0 X 10*3/uL (0.00-0.01); Neutrophils # (A) 2.31 X 10*3/uL (1.80-7.70); Neutrophils % (A) 57.1 %; Platelet Count 227 X 10*3/uL (140-440); RBC 4.73 X 10*6/uL (4.10-5.20); RDW 11.9 % (11.5-14.5); WBC 4.04 X 10*3/uL (4.50-10.00)
[2024-07-16 15:13] LABS: ALT 34 U/L (8-44); AST 32 U/L (13-35); Albumin 4.7 g/dL (3.8-4.9); Albumin/Globulin Ratio 2.04 Ratio (1.60-3.17); Alkaline Phosphatase 92 U/L (41-126); BUN/Creat Ratio 21.62 Ratio (12.00-20.00); Blood Urea Nitrogen 17.3 mg/dL (9.0-27.0); Calcium 9.9 mg/dL (8.7-10.3); Carbon Dioxide 28.4 mmol/L (21.6-31.8); Chloride 105 mmol/L (96-109); Globulin 2.3 g/dL (1.6-3.3); Glucose 97 mg/dL (70-110); Potassium 4.5 mmol/L (3.5-5.5); Sodium 143 mmol/L (135-145); Total Bilirubin 0.7 mg/dL (0.3-1.2)
== END | disposition home or self-care (01) ==
LOC: LABWHC1 10:46
PROVIDERS: ATTEND Family Medicine
DX: L43.8 Other lichen planus
CPT/HCPCS: 36415; 80053; 85025

== ENCOUNTER → 2024-07-16 | Outpatient (CLI) | payer BC ==
--- NOTE | 2024-07-16 15:07 | US ---
EXAMINATION TYPE: US thyroid st tissue head/neck DATE OF EXAM: 07/16/2024 COMPARISON: US 2023 CLINICAL INDICATION: Female, 59 years old with history of E07.9 THYROID GOITER; GLAND SIZE: Right Lobe: 4.0 x 0.9 x 1.3 cm Overall Parenchyma: heterogeneous Left Lobe: 4.1 x 1.3 x 1.3 cm Overall Parenchyma: heterogeneous Isthmus Thickness: 0.2 cm NODULES RIGHT: # of nodules measured on right: 1 1. 0.8 X 0.3 x 0.8 cm, mid, solid or almost completely solid, hypoechoic nodule, which is wider nanci n tall, with smooth margins, without echogenic foci. TR 4 Prior size: 0.9 x 0.4 x 0.6 cm LEFT: # of nodules measured on left: 2 1. 1.2 X 0.7 x 0.9 cm, upper mid, solid or almost completely solid, hypoechoic nodule, which is nivia ler than wide, with smooth margins, without echogenic foci. Prior size: 1.2 x 0.8 x 0.8 cm TR4 2. 1.3 X 0.9 x 1.3 cm, mid, solid or almost completely solid, hypoechoic nodule, which is wider th an tall, with smooth margins, without echogenic foci. TR 4 Prior size: 1.2 x 1.1 x 1.1 cm ISTHMUS: # of nodules measured in the isthmus: 1 1. 1.8 X 1.1 x 1.3 cm solid or almost completely solid, isoechoic nodule, which is wider than tall, with ill-defined margins, without echogenic foci. TR 3 Prior size: 1.7 x 1.1 x 1.9 cm Bilateral neck scanned, no evidence of lymphadenopathy. Multiple nodules throughout thyroid, largest described above IMPRESSION: Stable multinodular thyroid with no significant interval change. See below recommendations according to ACR guidelines. 2017 ACR TI-RADS LEVEL: TR-RADS 4 - Moderately Suspicious: Follow if > 1 cm, FNA if > 1.5 cm *Highest TI-RADS level nodule reported
== END | disposition home or self-care (01) ==
LOC: RADUSWWP 10:09
PROVIDERS: ATTEND Family Medicine
DX: E07.9 Disorder of thyroid, unspecified
CPT/HCPCS: 76536

== ENCOUNTER → 2025-05-14 | Outpatient (CLI) | payer BC ==
--- NOTE | 2025-05-14 15:15 | MM ---
Reason for Exam: Screening (asymptomatic). Last mammogram was performed 1 year(s) and 2 month(s) ago. Patient History: Menarche at age 15. First Full-Term at age 29. Postmenopausal. Ashkenazi Restorationist. Currently using Estrogen, for 7 months. Hormonal Contraceptives for 9 years, 1 month, from age 36 until age 47. 10/18/2023, Benign US breast aspiration single RT on the right side. Benign Cyst Aspiration on the right side. Maternal grandmother had breast cancer, age 68. Risk Values: Luba 5 year model risk: 1.5%. NCI Lifetime model risk: 7.4%. Prior Study Comparison: 02/08/2023 Bilateral MG 3D screening mammo w/cad, [facility]. 10/18/2023 Right MG diagnostic mammo RT wo CAD, [facility]. 03/27/2024 Bilateral MG 3D diag mammo w/cad BETY, [facility]. Tissue Density: The breasts are heterogeneously dense, which may obscure small masses. Findings: Analyzed By CAD. A biopsy clip in the right breast is redemonstrated. There is no suspicious group of microcalcifications or new suspicious mass in either breast. Overall Assessment: Benign, BI-RAD 2 Management: Screening Mammogram of both breasts in 1 year. . Patient should continue monthly self-breast exams. A clinical breast exam by your physician is recommended on an annual basis. This exam should not preclude additional follow-up of suspicious palpable abnormalities. Note on Luba scores and lifetime risk: 1. A Luba score greater than 3% is considered moderate risk. If this is the case, consider specialist referral to assess eligibility for a risk reducing agent. 2. If overall lifetime risk for the development of breast cancer is 20% or higher, the patient may qualify for future screening with alternating mammogram and breast MRI. [facility], , 05/14/2025 3:12 PM. Electronically signed and approved by: Moses Santos M.D.
--- NOTE | 2025-05-14 15:19 | US ---
EXAMINATION TYPE: US thyroid st tissue head/neck DATE OF EXAM: 05/14/2025 COMPARISON: US 07/16/2024 CLINICAL INDICATION: Female, 60 years old with history of Z12.31 ENCNTR SCREEN MAMMOGRAM FOR MALIGNAN T NEOPL; Nodule TECHNIQUE: Grayscale and color Doppler imaging of the thyroid gland. FINDINGS: GLAND SIZE: Right Lobe: 4.5 x 1.4 x 1.0 cm Overall Parenchyma: heterogeneous Left Lobe: 4.5 x 1.4 x 1.1 cm Overall Parenchyma: heterogeneous Isthmus Thickness: 0.27 cm NODULES RIGHT: # of nodules measured on right: 2 1. 0.9 X 0.6 x 0.4 cm, mid mid, Prior size: 0.8 x 0.8 x 0.3 cm TIRADS Score: 4 TIRADS Category 4: Composition: Solid or almost completely solid (2 points). Echogenicity: Hypoechoic (2 points). Shape: Wider than tall (0 points). Margin: Smooth (0 points). Echogenic foci: None or large comet-tail artifacts (0 points) Recommendation: If >1.5cm: FNA; If >1cm: Follow up at 1,2, 3,5 years 2. 0.8 X 0.6 x 0.6 cm, lower medial, solid or almost completely solid, hyperechoic nodule, which is as wide as it is tall, with smooth margins, with echogenic foci (Appears calcified). Prior size: Not measured on prior us TIRADS Score: 3 TIRADS Category 3: Composition: Solid or almost completely solid (2 points). Echogenicity: Cannot be determined (1 point). Shape: Wider than tall (0 points). Margin: Smooth (0 points). Echogenic foci: None or large comet-tail artifacts (0 points) Recommendation: If >2.5cm: FNA; If >1.5cm: Follow up at 1,3,5 years LEFT: # of nodules measured on left: 2 1. 1.1 X 1.0 x 0.8 cm, upper mid, Prior size: 1.2 x 0.9 x 0.7 cm TIRADS Score: 4 TIRADS Category 4: Composition: Solid or almost completely solid (2 points). Echogenicity: Hypoechoic (2 points). Shape: Wider than tall (0 points). Margin: Smooth (0 points). Echogenic foci: None or large comet-tail artifacts (0 points) Recommendation: If >1.5cm: FNA; If >1cm: Follow up at 1,2, 3,5 years 2. 1.3 X 1.1 x 1.0 cm, mid mid, Prior size: 1.3 x 1.3 x 0.9 cm BIOPSY THIS TIRADS Score: 7 TIRADS Category 5: Composition: Solid or almost completely solid (2 points). Echogenicity: Hypoechoic (2 points). Shape: Wider than tall (0 points). Margin: Smooth (0 points). Echogenic foci: None or large comet-tail artifacts (0 points) Punctate echogenic foci (3 points) Recommendation: If >1cm: FNA; If >0.5cm: Follow annually for 5 years ISTHMUS: # of nodules measured in the isthmus: 1 1. 1.7 X 1.8 x 1.1 cm Prior size: 1.8 x 1.3 x 1.1 cm TIRADS Score: 4 TIRADS Category 4: Composition: Solid or almost completely solid (2 points). Echogenicity: Hypoechoic (2 points). Shape: Wider than tall (0 points). Margin: Smooth (0 points). Echogenic foci: None or large comet-tail artifacts (0 points) Recommendation: If >1.5cm: FNA; If >1cm: Follow up at 1,2, 3,5 years Bilateral neck scanned, no evidence of lymphadenopathy. IMPRESSION: Left thyroid nodule 1.3 X 1.1 x 1.0 cm, mid mid, within the mid gland with echogenic foci is highl y suspicious. This was recommended to be biopsy on 04/04/2024. Correlate for interval biopsy. Highest TI-RADS level nodule reported: 2017 ACR TI-RADS LEVEL: TI-RADS 5 - Highly Suspicious: Follow if > 0.5 cm, FNA if > 1.0 cm TI-RADS assessment score and recommendation for follow-up based on appropriate scoring and treatment protocols. TR1 Benign No FNA TR2 Not suspicious No FNA TR3: If nodule size is ? 2.5 cm, FNA is recommended. If nodule size is ? 1.5 cm, follow-up imaging at 1, 3, and 5 years is recommended. TR4: If nodule size is ? 1.5 cm, FNA is recommended. If nodule size is ? 1.0 cm, follow-up imaging at 1, 2, 3, and 5 years is recommended. TR5: If nodule size is ? 1.0 cm, FNA is recommended. If nodule size is ? 0.5 cm, annual follow-up for up to 5 years is recommended. TR 1 thyroid nodules have a 0.3 % risk of malignancy. TR 2 thyroid nodules have a 1.5 % risk of malignancy. TR 3 thyroid nodules have a 4.8 % risk of malignancy. TR 4 thyroid nodules have a 9.1 % risk of malignancy. TR 5 thyroid nodules have a 35 % risk of malignancy. [email or web address] [facility], , 05/14/2025 3:16 PM
== END | disposition home or self-care (01) ==
LOC: RADUSWWP 14:09
PROVIDERS: ATTEND Family Medicine
DX: Z12.31 Encounter for screening mammogram for malignant neoplasm of breast (principal); E07.9 Disorder of thyroid, unspecified; R92.333 Mammographic heterogeneous density, bilateral breasts; Z78.0 Asymptomatic menopausal state; Z80.3 Family history of malignant neoplasm of breast; Z92.0 Personal history of contraception
CPT/HCPCS: 76536; 77063; 77067

== ENCOUNTER 2025-06-05 08:26 | Day surgery (SDC) | payer BC ==
[2025-06-05 09:07] VITALS: RESP 16; TEMP 98.7
[2025-06-05 12:02] VITALS: BP 132/68; PULSE 57
--- NOTE | 2025-06-05 15:41 | US ---
EXAMINATION TYPE: US FNA thyroid first lesion, US FNA thyroid each add lesion DATE OF EXAM: 06/05/2025 10:56 AM COMPARISON: 05/14/2025. CLINICAL INDICATION: Female, 60 years old with history of E04.2 NONTOXIC MULTINODULAR GOITER, , RADIOLOGIST: Dr. Walker PROCEDURE: An initial scanning showing the target nodules: * (1) a 1.3 cm solid TR5 nodule at the left midpole * (2) a 1.8 cm solid TR4 nodule in the right isthmus. These are targeted for FNA. The procedure, along with the risks and complications were discussed with the patient. Patient agreed to proceed with the procedure. A consent was signed and placed in patient's chart. Maximum sterile barrier technique was utilized. Timeout was performed by myself. The left side of the neck and midline was sterilely prepped and draped in the usual fashion. Total 8 mL of 1% Lidocaine w ere utilized to anesthetize the superficial and deep soft tissues at each nodule in turn. Following that, under ultrasound guidance, 5 passes were made into each nodule with 5 cc syringe suct ion. After each pass, the sample was placed on a slide and then sent for pathology. Upon conclusion, hemostasis was achieved, and patient was discharged home in satisfactory condition. IMPRESSION: Successful FNA of: (1) the 1.3 cm solid TR5 nodule at the left midpole (2) and 1.8 cm solid TR4 nodule in the right isthmus. Pathology pending. [facility], , 06/05/2025 3:39 PM
== END 2025-06-05 10:45 | disposition home or self-care (01) ==
LOC: RADPROMAIN 08:26
PROVIDERS: ATTEND Family Medicine
DX: E04.2 Nontoxic multinodular goiter (principal)
CPT/HCPCS: 10005; 10006; 88173; 88305